=== PATIENT | female | born 1965 | race Two or more races ===

== ENCOUNTER 2017-05-21 20:22 | Emergency (ER) | payer SELFPAY ==
[2017-05-21] MEDS ORDERED: Ibuprofen TAB* 600 MG PO ONE (20:48)
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
[2017-05-21 22:09] VITALS: BP 113/56
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
== END 2017-05-21 22:08 | disposition home or self-care (01) ==
LOC: ED 20:22
DX: M54.5 Low back pain (principal); Z04.1 Encounter for examination and observation following transport accident
CPT/HCPCS: 72070; 99282; A9270-GY